=== PATIENT | female | born 1990 | race Two or more races ===

== ENCOUNTER 2025-01-18 15:31 | Emergency (ER) | payer OTHER ==
[~2025-01-18] VITALS: Ht 167.6 cm; Wt 60.3 kg
[2025-01-18 17:16] VITALS: BP 120/79; O2SAT 100
[2025-01-18] MEDS ORDERED: CAMILA0.35 MG (17:18)
[2025-01-18 17:59] LABS: BASO % 0.5 % (0.1-1.2); EOS # 0.13 (0.04-0.54); EOS % 1.6 % (0.7-7.0); LYMPH # 2.61 (1.18-3.74); LYMPH % 33.0 % (19.3-53.1); MEAN PLATELET VOLUME 10.10 fl (9.4-12.4); MONO # 0.59 (0.24-0.82); MONO % 7.5 % (4.7-12.5); NEUT # 4.52 (1.56-6.13); NEUT % 57.1 % (34.0-71.1); RED CELL DISTRIBUTION WIDTH 17.2 % (11.6-14.4)
[2025-01-18 18:14] LABS: INR 0.97
[2025-01-18 18:15] LABS: URINE APPEARANCE Clear; URINE BILIRRUBIN Negative (NEGATIVE); URINE BLOOD Large; URINE COLOR Yellow; URINE GLUCOSE Negative (NEGATIVE); URINE KETONE Trace (NEGATIVE); URINE LEUKOCYTE Trace; URINE NITRATE Negative; URINE PROTEIN Negative (NEGATIVE); URINE UROBILINOGEN 0.2 E.U./dl
[2025-01-18] MEDS ORDERED: TRAMADOL HCL 50 MG TABLET PO ONE (18:15)
[2025-01-18 18:19] LABS: URINE BACTERIA 149.9 uL (0.0-1933); URINE EPITHELIAL CELLS 21.0 uL (0.0-38.8); URINE RBC 57.0 uL (0.0-20.8); URINE WBC 6.6 uL (0.0-23.2)
[2025-01-18 18:23] LABS: URINE CAST 0.00 uL (0.0-1.40)
[2025-01-18] MEDS ORDERED: BENZONATATE 200 MG CAPSULE PO ONE (19:45)
== END 2025-01-18 20:29 | disposition home or self-care (01) ==
LOC: ER 16:22
PROVIDERS: General Practice
DX: N93.9 Abnormal uterine and vaginal bleeding, unspecified (principal); Z87.09 Personal history of other diseases of the respiratory system